=== PATIENT | male | born 1965 | race Caucasian/White ===

== ENCOUNTER 2017-01-03 21:19 | Emergency (ER) | payer OTHER ==
[~2017-01-03] VITALS: Ht 177.8 cm; Wt 74.8 kg
[2017-01-03 21:19] VITALS: BP_SYST 98
[~2017-01-03 21:19] MED LIST: NITSL SL; OXYC10TA71 PO
[2017-01-03] MEDS ORDERED: NITROGLYCERIN LINGUAL 400 mCg/SPRAY SL STA (21:49)
[2017-01-03] MEDS ORDERED: ASPIRIN 81 MG TAB.CHEW PO ONE (22:00)
[2017-01-03] MEDS ORDERED: ASPIRIN 81 MG TAB.CHEW ONE (22:04)
[2017-01-03] MEDS ORDERED: NITROGLYCERIN LINGUAL 400 mCg/SPRAY ONE (22:04)
[2017-01-03 22:09] LABS: BASOPHILS # (AUTO) 0.2 K/uL (0.0-0.2); BASOPHILS % (AUTO) 1.7 % (0.0-2.0); EOSINOPHILS # (AUTO) 0.1 K/uL (0.0-0.4); HEMATOCRIT 49.9 % (36-54); HEMOGLOBIN 16.9 g/dL (14.0-18.0); LYMPHOCYTES # (AUTO) 1.9 K/uL (1.0-5.5); MEAN CORPUSCULAR HEMOGLOBIN 30 pg (27-31); MEAN CORPUSCULAR HGB CONC 34 % (32-36); MEAN CORPUSCULAR VOLUME 89 fL (79.0-98.0); MONOCYTES # (AUTO) 0.7 K/uL (0.0-1.0); MONOCYTES % (AUTO) 7.6 % (1.7-9.3); NEUTROPHILS # (AUTO) 6.4 K/uL (1.8-7.7); NEUTROPHILS % (AUTO) 69.7 % (40.0-70.0); PLATELET COUNT (AUTO) 412 K/uL (130-430); RED BLOOD CELL COUNT(AUTO) 5.61 MIL/uL (4.2-6.2); RED CELL DISTRIBUTION WIDTH 14.1 % (9.0-15.0); WHITE BLOOD COUNT (AUTO) 9.3 K/uL (4.8-10.8)
[2017-01-03 22:15] LABS: CALCIUM 8.7 mg/dL (8.4-11.0); CREATININE 1.18 mg/dL (0.55-1.30); POTASSIUM 3.7 mmol/L (3.5-5.1)
[2017-01-03] MEDS ORDERED: DIPHENHYDRAMINE INJ 50 MG/ML VIAL IVP ONE ×2 (22:15→23:30)
[2017-01-03] MEDS ORDERED: PANTOPRAZOLE SODIUM 40 MG/VIAL (PROTONIX) IVP ONE (22:15)
[2017-01-03] MEDS ORDERED: MORPHINE 4 MG/ML INJ. SYRINGE IVP ONE (22:15)
[2017-01-03 22:19] LABS: PROTHROMBIN TIME 11.2 SECS (9.5-12.5)
[2017-01-03 22:20] LABS: ALBUMIN 3.9 g/dL (3.4-4.8); TOTAL BILIRUBIN 0.6 mg/dL (0.0-1.0); TOTAL PROTEIN, SERUM 7.5 g/dL (6.4-8.3)
[2017-01-03] MEDS ORDERED: MAG HYDROX/AL HYDROX/SIMETH 30 ML, BELLADONNA ALKALOIDS/PHENOBARB 10 ML, LIDOCAINE VISC... PO ONE ×3 (22:30)
[2017-01-03] MEDS ORDERED: DICYCLOMINE HCL 20 MG/2 ML AMP IM ONE (23:30)
[2017-01-03] MEDS ORDERED: HYDROmorphone 1 MG INJ. 1 MG/ML AMPUL IVP ONE (23:30)
[2017-01-03 23:37] LABS: BARBITURATE, URINE NEGATIVE (NEG <=200); BENZODIAZEPINE, URINE NEGATIVE (NEG <=150); METHAMPHETAMINES SCREEN,URINE NEGATIVE (NEG <=500); URINE AMPHETAMINE NEGATIVE (NEG <=500); URINE METHADONE NEGATIVE (NEG <=200)
[2017-01-03 23:38] LABS: CANNABINOID, URINE POSITIVE (NEG <=50); COCAINE, URINE NEGATIVE (NEG <=150); OPIATE, URINE POSITIVE (NEG <=100); PHENCYCLIDINE SCREEN,URINE NEGATIVE (NEG <=25); UR TRICYCLIC ANTIDEPRESSANTS NEGATIVE (NEG <=300); URINE OXYCODONE SCREEN POSITIVE (NEG <=100); URINE PROPOXYPHENE SCREEN NEGATIVE (NEG <=300)
[2017-01-04] MEDS ORDERED: DIPHENHYDRAMINE INJ 50 MG/ML VIAL IVP ONE
[2017-01-04] MEDS ORDERED: HYDROmorphone 1 MG INJ. 1 MG/ML AMPUL IVP ONE
[2017-01-04] MEDS ORDERED: NS 500 ML IV ONE
[2017-01-04 01:00] VITALS: BP_SYST 122
== END 2017-01-04 01:03 | disposition home or self-care (01) ==
LOC: SED 21:19
DX: R07.2 Precordial pain (principal); R06.02 Shortness of breath; R20.2 Paresthesia of skin; F17.210 Nicotine dependence, cigarettes, uncomplicated; Z85.46 Personal history of malignant neoplasm of prostate; Z86.79 Personal history of other diseases of the circulatory system; Z53.20 Procedure and treatment not carried out because of patient's decision for unspecified reasons
CPT/HCPCS: 36415; 71010; 80053; 80307; 84484; 85025; 85379; 85610; 85730; 93005; 96374; 96375; 99285; C9113; J1200; J2001; J2270; J7040; J1170